=== PATIENT | male | born 1975 ===

== ENCOUNTER → 2016-12-09 | Outpatient (CLI) | payer BC ==
[2016-12-09 13:25] LABS: ALT/SGPT 18 U/L (12-78); BLOOD UREA NITROGEN 19 mg/dl (7-18); CALCIUM 9.2 mg/dl (8.5-10.1); CARBON DIOXIDE 30 mmol/L (21-32); CHLORIDE 106 mmol/L (98-107); CHOLESTEROL 166 mg/dl (0-200); GLUCOSE 94 mg/dl (70-99); POTASSIUM 3.9 mmol/L (3.5-5.1); SODIUM 141 mmol/L (136-145); TRIGLYCERIDES 121 mg/dl (0-150); VERY LOW DENSITY LIPOPROT CALC 24 mg/dl
[2016-12-09 13:28] LABS: ALB/GLOB RATIO 1.3 (0.9-2); ALKALINE PHOSPHATASE 102 U/L (45-117); AST/SGOT 12 U/L (15-37); CHOLESTEROL/HDL RATIO 4.7; HDL CHOLESTEROL 35 mg/dl; LDL CHOLESTEROL CALCULATED 107 mg/dl
== END | disposition home or self-care (01) ==
LOC: C.LABPVFM 08:27
PROVIDERS: ATTEND Family Medicine
DX: Z13.220 Encounter for screening for lipoid disorders (principal); Z13.1 Encounter for screening for diabetes mellitus; K42.9 Umbilical hernia without obstruction or gangrene

== ENCOUNTER → 2017-03-31 | Outpatient (CLI) | payer BC | END | disposition home or self-care (01) | LOC: C.LABSPEC 13:30 | PROVIDERS: ATTEND Family Medicine | DX: J02.9 Acute pharyngitis, unspecified (principal) ==